=== PATIENT | female | born 1965 | race African-American/Black ===

== ENCOUNTER 2020-06-12 11:09 | Inpatient (IN) | payer OTHER ==
[2020-06-12 11:17] VITALS: BMI 26.9
--- NOTE | 2020-06-12 11:48 | PDOC ---
History of Present Illness - General Chief Complaint: Rectal Bleed Stated Complaint: Blood Transfusion Time Seen by Provider: 06/12/20 11:24 - History of Present Illness Initial Comments: Day Houston is a 54 y/o female with PMH significant for HTN and hemorrhoids, presenting today with rectal bleeding associated with bowel movements, anemia, and for blood transfusion. Reports that she has a hx of hemorrhoids but over the past 3 weeks has "bleeding like a faucet" when she has bowel movements. Pain on BM. Reports that her HGB was 14 last week and 7 yesterday. Sent in by Dr. Valle for blood transfusion, admission, and scope. No chest pain/shortness of breath. No dizziness or syncope. No abd pain. No nausea/vomiting. Reports mild constipation. No back pain. No lower extremity swelling or pain. No rectal bleeding when not having a bowel movement. Past History - Medical History Allergies/Adverse Reactions: Allergies Allergy/AdvReac Type Severity Reaction Status Date / Time No Known Allergies Allergy Unverified 06/12/20 11:18 Home Medications: Ambulatory Orders Amlodipine/Atorvastatin [Amlodipine-Atorvast 10-20 mg] 1 each PO DAILY 06/12/20 Ferrous Sulfate [Iron] 325 mg PO DAILY 06/12/20 Linaclotide [Linzess] 145 mcg PO DAILY 06/12/20 Metoprolol Succinate 50 mg PO DAILY 06/12/20 Anemia: Yes COPD: No HTN: Yes - Psycho-Social/Smoking History Smoking History: Never smoked Have you smoked in the past 12 months: No Information on smoking cessation initiated: No - Substance Abuse Hx (Audit-C & DAST Scrn) How often the patient has a drink containing alcohol: 2-4 times / month Number of drinks the patient has on a typical day: 1 or 2 How often the patient has six or more drinks on one occasion: Never Score: In Men: 4 or > Positive; In Women: 3 or > Positive: 2 Screen Result (Pos requires Nsg. Audit-10AR): Negative In the last yr the pt used illegal drug/Rx for NonMed reason: No Score: Yes response is considered Positive: 0 Screen Result (Positive result requires Nsg. DAST-10): Negative Review of Systems - Review of Systems Comments:: GENERAL/CONSTITUTIONAL: No fever or chills. No weakness._ HEAD, EYES, EARS, NOSE AND THROAT: No change in vision. No change in hearing. No sore throat._ CARDIOVASCULAR: No chest pain or shortness of breath_ RESPIRATORY: Denies cough, hemoptysis_ GASTROINTESTINAL: No nausea, vomiting, diarrhea. Reports constipation and rectal bleeding with bowel movement. Reports pain with bowel movement. GENITOURINARY: No dysuria, frequency, or change in urination._ MUSCULOSKELETAL: No joint or muscle swelling or pain. No neck or back pain._ SKIN: No rash_ NEUROLOGIC: No headache, vertigo, loss of consciousness, or change in strength/sensation._ ENDOCRINE: No increased thirst. No abnormal weight change_ HEMATOLOGIC/LYMPHATIC: No anemia, easy bleeding, or history of blood clots._ ALLERGIC/IMMUNOLOGIC: No hives or skin allergy._ *Physical Exam - Vital Signs Last Vital Signs Temp Pulse Resp BP Pulse Ox 99.0 F 104 H 16 129/90 100 06/12/20 11:15 06/12/20 11:15 06/12/20 11:15 06/12/20 11:15 06/12/20 11:15 - Physical Exam GENERAL: Awake, alert, and oriented to person/place/time, in no acute distress_ HEAD: No signs of trauma, normocephalic, atraumatic _ EYES: PERRLA, EOMI, sclera anicteric, conjunctiva clear_ ENT: Hearing grossly normal, nares patent, oropharynx clear without exudates. No uvular deviation. Moist mucosa_ NECK: Normal ROM, supple, no lymphadenopathy, JVD, or masses_ LUNGS: No distress, speaks in full sentences, clear to auscultation bilaterally _ HEART: Regular rate and rhythm, normal S1 and S2, no murmurs appreciated, peripheral pulses normal and equal bilaterally._ ABDOMEN: Soft, nontender, normoactive bowel sounds. No guarding, no rebound. No masses_ EXTREMITIES: Normal inspection, Normal range of motion, no edema. No clubbing or cyanosis_ NEUROLOGICAL: Cranial nerves II through XII grossly intact. Normal speech, normal gait, no focal sensorimotor deficits _ SKIN: Warm, Dry, normal turgor, no rashes or lesions noted_ RECTAL: No active bleeding. Small skin colored hemorrhoid left lateral. No masses. Normal rectal tone. Normal external inspection. ED Treatment Course - LABORATORY CBC & Chemistry Diagram: 06/12/20 11:50 06/12/20 11:50 - RADIOLOGY Radiology Studies Ordered: Category Date Time Status CHEST X-RAY PORTABLE* [RAD] Stat Radiology 06/12/20 11:33 Ordered Medical Decision Making - Medical Decision Making 06/12/20 11:47 54F hx of HTN and hemorrhoids sent in by Dr. Valle today for rectal bleeding and hemorrhoids. Hgb 7 yesterday. Plan to transfuse and admit for scope. -labs -ekg -cxr -type and screen -coags 06/12/20 12:35 EKG shows 83 bpm, NSR, no ST elevation, QTc 420, nml axis. 06/12/20 12:38 CXR negative for acute intrathoracic pathology. 06/12/20 12:46 Labs reviewed. Hgb 6.7. -1 unit pRBC Laboratory Last Values WBC 6.1 K/mm3 (4.0-10.0) 06/12/20 11:50 RBC 2.36 M/mm3 (3.60-5.2) L 06/12/20 11:50 Hgb 6.7 GM/dL (10.7-15.3) L* 06/12/20 11:50 Hct 21.0 % (32.4-45.2) L 06/12/20 11:50 MCV 88.9 fl (80-96) 06/12/20 11:50 MCH 28.3 pg (25.7-33.7) 06/12/20 11:50 MCHC 31.8 g/dl (32.0-36.0) L 06/12/20 11:50 RDW 18.7 % (11.6-15.6) H 06/12/20 11:50 Plt Count 275 K/MM3 (134-434) 06/12/20 11:50 MPV 8.2 fl (7.5-11.1) 06/12/20 11:50 Absolute Neuts (auto) 4.1 K/mm3 (1.5-8.0) 06/12/20 11:50 Neutrophils % 67.5 % (42.8-82.8) 06/12/20 11:50 Lymphocytes % 22.5 % (8-40) 06/12/20 11:50 Monocytes % 8.0 % (3.8-10.2) 06/12/20 11:50 Eosinophils % 1.5 % (0-4.5) 06/12/20 11:50 Basophils % 0.5 % (0-2.0) 06/12/20 11:50 Nucleated RBC % 0 % (0-0) 06/12/20 11:50 PT with INR 10.80 SEC (9.7-13.0) 06/12/20 11:50 INR 0.92 (0.83-1.09) 06/12/20 11:50 PTT (Actin FS) 26.8 SECONDS (25.2-36.5) 06/12/20 11:50 Sodium 141 mmol/L (136-145) 06/12/20 11:50 Potassium 4.2 mmol/L (3.5-5.1) 06/12/20 11:50 Chloride 108 mmol/L (98-107) H 06/12/20 11:50 Carbon Dioxide 27 mmol/L (21-32) 06/12/20 11:50 Anion Gap 6 MMOL/L (8-16) L 06/12/20 11:50 BUN 7.5 mg/dL (7-18) 06/12/20 11:50 Creatinine 0.6 mg/dL (0.55-1.3) 06/12/20 11:50 Est GFR (CKD-EPI)AfAm 120.61 06/12/20 11:50 Est GFR (CKD-EPI)NonAf 104.06 06/12/20 11:50 Random Glucose 105 mg/dL (74-106) 06/12/20 11:50 Calcium 9.1 mg/dL (8.5-10.1) 06/12/20 11:50 Total Bilirubin 0.2 mg/dL (0.2-1) 06/12/20 11:50 AST 29 U/L (15-37) 06/12/20 11:50 ALT 41 U/L (13-61) 06/12/20 11:50 Alkaline Phosphatase 54 U/L (45-117) 06/12/20 11:50 Total Protein 6.7 g/dl (6.4-8.2) 06/12/20 11:50 Albumin 3.5 g/dl (3.4-5.0) 06/12/20 11:50 Stool Occult Blood Trace (NEGATIVE) 06/12/20 11:50 Crossmatch See Detail 06/12/20 11:50 06/12/20 13:07 D/w Dr. Gordon who accepts the patient for admission. 06/12/20 13:55 D/w Dr. Valle who requests clear liquid diet, CTA if profuse bleeding without bowel movement, 2 u pRBC. Discharge - Discharge Information Problems reviewed: Yes Clinical Impression/Diagnosis: LGI bleed, Lightheadedness Anemia Qualifiers: Anemia type: other cause Other causes of anemia: other cause, not classified Qualified Code(s): D64.89 - Other specified anemias Condition: Guarded - Admission Yes - Follow up/Referral - Patient Discharge Instructions - Post Discharge Activity
[2020-06-12 12:16] LABS: BASO % 0.5 % (0-2.0); EOS % 1.5 % (0-4.5); LYMPH % 22.5 % (8-40); MCH 28.3 pg (25.7-33.7); MCHC 31.8 g/dl (32.0-36.0); MEAN CELL VOLUME 88.9 fl (80-96); MEAN PLT VOLUME 8.2 fl (7.5-11.1); NEUT % 67.5 % (42.8-82.8); PLATELET COUNT 275 K/MM3 (134-434); RBC 2.36 M/mm3 (3.60-5.2); RDW 18.7 % (11.6-15.6); WHITE BLOOD COUNT 6.1 K/mm3 (4.0-10.0)
[2020-06-12 12:19] LABS: HEMOGLOBIN 6.7 GM/dL (10.7-15.3)
[2020-06-12 12:21] LABS: INR 0.92 (0.83-1.09); PROTHROMBIN TIME (PATIENT) 10.8 SEC (9.7-13.0)
[2020-06-12 12:24] LABS: ACTIVATED PTT 26.8 SECONDS (25.2-36.5)
[2020-06-12 12:45] LABS: ALBUMIN 3.5 g/dl (3.4-5.0); BILIRUBIN,TOTAL 0.2 mg/dL (0.2-1); BLOOD UREA NITROGEN 7.5 mg/dL (7-18); CALCIUM 9.1 mg/dL (8.5-10.1); CREATININE 0.6 mg/dL (0.55-1.3); POTASSIUM 4.2 mmol/L (3.5-5.1); TOT PROT 6.7 g/dl (6.4-8.2)
--- NOTE | 2020-06-12 12:48 | PDOC ---
Documentation entered by Modesto Asher SCRIBE, acting as scribe for Mireya Fulton MD. Mireya Fulton MD: This documentation has been prepared by the Lb loving Nirvannie, SCRIBE, under my direction and personally reviewed by me in its entirety. I confirm that the documentation accurately reflects all work, treatment, procedures, and medical decision making performed by me. Attending Attestation - Resident Resident Name: Jose D Alberto - ED Attending Attestation I have performed the following: I have examined & evaluated the patient, The case was reviewed & discussed with the resident, I agree w/resident's findings & plan, Exceptions are as noted - HPI HPI: 06/12/20 11:46 54YOF with h/o hemorrhoids (for many years with minimal bleeding whenever she wipes at baseline), one prior admission for rectal bleeding (resulting in blood transfusion and colonoscopy, in 2012), chronic LLQ pain, and HTN, who p/w rectal bleeding whenever she has a bowel movement worsening over the past 2-3 weeks, now coming out "like a faucet." She notes also feeling lightheaded and pre- syncopal but has not lost consciousness. She notes having needed a transfusion in the past. She was sent by Dr. Valle for admission to Dr. Poon's group and likely transfusion because her outpatient hemoglobin was ~7. She additionally notes that her baseline chronic LLQ pain has been slightly worse over the past few weeks. - Physicial Exam PE: 06/12/20 12:38 GENERAL: nontoxic-appearing, pleasant, A/Ox4, no distress, answers questions appropriately, accompanied by family member at bedside HEENT: pale conjunctiva, PERRLA, EOMI, moist mucous membranes NECK/BACK: no midline ttp, no spinal stepoff or deformity, no hematoma, full ROM, neck supple CARDIOVASCULAR: regular rate/rhythm, no MGR, strong peripheral pulses, capillary refill <2 seconds, extremities wwp, no edema LUNGS/RESPIRATORY: no respiratory distress, CTAB GI/ABDOMEN: symmetric [id number], normoactive BS, soft, no ttp, no midline pulsatile masses, ALINE as described in resident note as performed by resident : no CVA tenderness MSK/EXTREMITIES: no muscle atrophy, no acute deformity SKIN: warm and dry, no pallor, no jaundice, no rash, no pathologic-appearing bruising, no skin breakdown, no cuts, no lesions NEUROLOGICAL: GCS 15, CN II-XII grossly intact, 5/5 strength proximally and distally, no facial droop - Medical Decision Making 06/12/20 12:42 54YOF sent in by Dr. Valle for LGIB and Hgb ~7, patient states lightheaded but otherwise eels well. Initial Vital Signs Temp Pulse Resp BP Pulse Ox 99.0 F 104 H 16 129/90 100 06/12/20 11:15 06/12/20 11:15 06/12/20 11:15 06/12/20 11:15 06/12/20 11:15 Most likely bleeding hemorrhoids per her prior colonoscopy-confirmed diagnosis per the patient's report. Other possibilities include but not limited to diverticulosis or diverticulitis (especially given increase in baseline chronic LLQ discomfort), AV malformation, IBD, UC, malignancy, other anorectal disease, etc. W/U ordered: labs as below, pre-op w/u, EKG. Will control her symptoms here in the ED, keep NPO except ice chips for now, and plan for pRBC transfusion and admission. EKG: Sinus rhythm, rate 83, normal axis and intervals, TWF in III and aVL, no other ST-T changes. Laboratory Tests 06/12/20 06/12/20 06/12/20 11:50 11:50 11:50 WBC 6.1 RBC 2.36 L Hgb 6.7 L* Hct 21.0 L MCV 88.9 MCH 28.3 MCHC 31.8 L RDW 18.7 H Plt Count 275 MPV 8.2 Absolute Neuts (auto) 4.1 Neutrophils % 67.5 Lymphocytes % 22.5 Monocytes % 8.0 Eosinophils % 1.5 Basophils % 0.5 Nucleated RBC % 0 PT with INR 10.80 INR 0.92 PTT (Actin FS) 26.8 Sodium Potassium Chloride Carbon Dioxide Anion Gap BUN Creatinine Est GFR (CKD-EPI)AfAm Est GFR (CKD-EPI)NonAf Random Glucose Calcium Total Bilirubin AST ALT Alkaline Phosphatase Total Protein Albumin Stool Occult Blood Trace Crossmatch 06/12/20 06/12/20 11:50 11:50 WBC RBC Hgb Hct MCV MCH MCHC RDW Plt Count MPV Absolute Neuts (auto) Neutrophils % Lymphocytes % Monocytes % Eosinophils % Basophils % Nucleated RBC % PT with INR INR PTT (Actin FS) Sodium 141 Potassium 4.2 Chloride 108 H Carbon Dioxide 27 Anion Gap 6 L BUN 7.5 Creatinine 0.6 Est GFR (CKD-EPI)AfAm 120.61 Est GFR (CKD-EPI)NonAf 104.06 Random Glucose 105 Calcium 9.1 Total Bilirubin 0.2 AST 29 ALT 41 Alkaline Phosphatase 54 Total Protein 6.7 Albumin 3.5 Stool Occult Blood Crossmatch See Detail Patient requires admission for further workup and observation and for blood transfusion. Admission procedures completed by Dr. Alberto. Discharge - Discharge Information Problems reviewed: Yes Clinical Impression/Diagnosis: LGI bleed, Lightheadedness Anemia Qualifiers: Anemia type: other cause Other causes of anemia: other cause, not classified Qualified Code(s): D64.89 - Other specified anemias Condition: Guarded - Admission Yes - Follow up/Referral Referrals: Reji Finney MD [Primary Care Provider] - - Patient Discharge Instructions - Post Discharge Activity
--- NOTE | 2020-06-12 14:03 | CON.GI ---
Consult Consult Specialty:: GI Reason for Consultation:: rectal bleeding - History of Present Illness History of Present Illness: 54 y/o F was referred because of rectal bleeding for the past 4 weeks. Recently this has worsened the past 2 weeks. She complains of dizziness but denies chest pain, syncope and dyspnea. Her hgb was 6 in the ER. Covid sent. No active bleeding at this time. She only bleeds after a bowel movement. - Smoking History Smoking history: Never smoked Have you smoked in the past 12 months: No Home Medications - Allergies Allergies/Adverse Reactions: Allergies Allergy/AdvReac Type Severity Reaction Status Date / Time No Known Allergies Allergy Unverified 06/12/20 11:18 - Home Medications Home Medications: Ambulatory Orders Amlodipine/Atorvastatin [Amlodipine-Atorvast 10-20 mg] 1 each PO DAILY 06/12/20 Ferrous Sulfate [Iron] 325 mg PO DAILY 06/12/20 Linaclotide [Linzess] 145 mcg PO DAILY 06/12/20 Metoprolol Succinate 50 mg PO DAILY 06/12/20 Physical Exam-GI Vital Signs: Vital Signs Temperature 99.0 F 06/12/20 11:15 Pulse Rate 104 H 06/12/20 11:15 Respiratory Rate 16 06/12/20 11:15 Blood Pressure 129/90 06/12/20 11:15 O2 Sat by Pulse Oximetry (%) 100 06/12/20 11:15 Constitutional: Yes: Well Nourished Eyes: Yes: Conjunctiva Clear HENT: Yes: Atraumatic Neck: Yes: Supple Cardiovascular: Yes: Regular Rate and Rhythm Respiratory: Yes: CTA Bilaterally ...Palpate: Yes: Soft. No: Firm/Rigid, Guarding, Hepatomegaly, Mass, Pulsatile Mass, Splenomegaly, Tenderness Labs: CBC, BMP 06/12/20 11:50 06/12/20 11:50 INR, PTT INR 0.92 (0.83-1.09) 06/12/20 11:50 CBCD WBC 6.1 K/mm3 (4.0-10.0) 06/12/20 11:50 RBC 2.36 M/mm3 (3.60-5.2) L 06/12/20 11:50 Hgb 6.7 GM/dL (10.7-15.3) L* 06/12/20 11:50 Hct 21.0 % (32.4-45.2) L 06/12/20 11:50 MCV 88.9 fl (80-96) 06/12/20 11:50 MCHC 31.8 g/dl (32.0-36.0) L 06/12/20 11:50 RDW 18.7 % (11.6-15.6) H 06/12/20 11:50 Plt Count 275 K/MM3 (134-434) 06/12/20 11:50 MPV 8.2 fl (7.5-11.1) 06/12/20 11:50 CMP Sodium 141 mmol/L (136-145) 06/12/20 11:50 Potassium 4.2 mmol/L (3.5-5.1) 06/12/20 11:50 Chloride 108 mmol/L (98-107) H 06/12/20 11:50 Carbon Dioxide 27 mmol/L (21-32) 06/12/20 11:50 Anion Gap 6 MMOL/L (8-16) L 06/12/20 11:50 BUN 7.5 mg/dL (7-18) 06/12/20 11:50 Creatinine 0.6 mg/dL (0.55-1.3) 06/12/20 11:50 Calcium 9.1 mg/dL (8.5-10.1) 06/12/20 11:50 Total Bilirubin 0.2 mg/dL (0.2-1) 06/12/20 11:50 AST 29 U/L (15-37) 06/12/20 11:50 ALT 41 U/L (13-61) 06/12/20 11:50 Alkaline Phosphatase 54 U/L (45-117) 06/12/20 11:50 Total Protein 6.7 g/dl (6.4-8.2) 06/12/20 11:50 Albumin 3.5 g/dl (3.4-5.0) 06/12/20 11:50 Problem List - Problems (1) Rectal bleeding Assessment/Plan: R>transfuse to HGB for colonoscopy , COVID --pending Dr Shaw is covering this weekend Code(s): K62.5 - HEMORRHAGE OF ANUS AND RECTUM
[2020-06-12] MEDS ORDERED: PANTOPRAZOLE SODIUM 40 MG VIAL ONE (15:54)
[2020-06-12] MEDS: PANTOPRAZOLE SODIUM 80 MG in SODIUM CHLORIDE 100 ML IVPB SCH (16:04)
[2020-06-12] MEDS: D5-1/2NS+20 MEQ KCL - 20 MEQ/1,000 ML INFUS.BAG IV SCH (16:04)
[2020-06-13] MEDS: PANTOPRAZOLE SODIUM 80 MG in SODIUM CHLORIDE 100 ML IVPB SCH ×3 (01:41→21:04)
[2020-06-13 07:59] LABS: BASO % 0.5 % (0-2.0); EOS % 2.7 % (0-4.5); HEMATOCRIT 24.8 % (32.4-45.2); HEMOGLOBIN 8.1 GM/dL (10.7-15.3); LYMPH % 29.3 % (8-40); MCH 28.3 pg (25.7-33.7); MCHC 32.9 g/dl (32.0-36.0); MEAN CELL VOLUME 86.1 fl (80-96); MEAN PLT VOLUME 8.4 fl (7.5-11.1); MONO % 8.5 % (3.8-10.2); PLATELET COUNT 233 K/MM3 (134-434); RBC 2.88 M/mm3 (3.60-5.2); RDW 17.1 % (11.6-15.6); WHITE BLOOD COUNT 5.3 K/mm3 (4.0-10.0)
[2020-06-13 08:03] LABS: INR 0.96 (0.83-1.09); PROTHROMBIN TIME (PATIENT) 11.3 SEC (9.7-13.0)
[2020-06-13 08:06] LABS: ACTIVATED PTT 26.3 SECONDS (25.2-36.5)
[2020-06-13 08:20] LABS: BILIRUBIN,TOTAL 0.7 mg/dL (0.2-1); BLOOD UREA NITROGEN 3.3 mg/dL (7-18); CALCIUM 8.9 mg/dL (8.5-10.1); CREATININE 0.7 mg/dL (0.55-1.3); POTASSIUM 3.7 mmol/L (3.5-5.1); TOT PROT 5.7 g/dl (6.4-8.2)
[2020-06-13] MEDS: ATORVASTATIN CA 20 MG TABLET (FP) PO SCH (09:32)
[2020-06-13] MEDS: amLODIPine BESYLATE 10 MG TABLET (FP) PO SCH (09:32)
--- NOTE | 2020-06-13 09:50 | HP ---
Admitting History and Physical - Past Medical History Cardiovascular: Yes: HTN, Hyperlipdemia Gastrointestinal: Yes: Constipation, GI Bleed - Smoking History Smoking history: Never smoked Have you smoked in the past 12 months: No Home Medications - Allergies Allergies/Adverse Reactions: Allergies Allergy/AdvReac Type Severity Reaction Status Date / Time No Known Allergies Allergy Unverified 06/12/20 11:18 - Home Medications Home Medications: Ambulatory Orders Amlodipine/Atorvastatin [Amlodipine-Atorvast 10-20 mg] 1 each PO DAILY 06/12/20 Ferrous Sulfate [Iron] 325 mg PO DAILY 06/12/20 Linaclotide [Linzess] 145 mcg PO DAILY 06/12/20 Metoprolol Succinate 50 mg PO DAILY 06/12/20 Review of Systems - Review of Systems Cardiovascular: denies: Chest Pain, Palpitations, Shortness of Breath Respiratory: denies: Hemoptysis, Orthopnea Gastrointestinal: reports: Constipation, Rectal Bleeding. denies: Abdominal Pain, Bloating Genitourinary: reports: No Symptoms Neurological: reports: No Symptoms Physical Examination Vital Signs: Vital Signs Temperature 98.3 F 06/13/20 08:52 Pulse Rate 83 06/13/20 08:52 Respiratory Rate 18 06/13/20 08:57 Blood Pressure 124/73 06/13/20 08:52 O2 Sat by Pulse Oximetry (%) 100 06/13/20 08:57 Cardiovascular: Yes: Regular Rate and Rhythm Respiratory: Yes: Regular, CTA Bilaterally Gastrointestinal: Yes: Normal Bowel Sounds, Soft. No: Tenderness Labs: CBC, BMP 06/13/20 06:20 06/13/20 06:20 Problem List - Problems (1) Anemia Assessment/Plan: TRANSFUSE PRBC FOLLOW LABS GI CONSULT NOTED Code(s): D64.9 - ANEMIA, UNSPECIFIED Qualifiers: Anemia type: other cause Other causes of anemia: other cause, not classified Qualified Code(s): D64.89 - Other specified anemias (2) Rectal bleeding Assessment/Plan: ABOVE Code(s): K62.5 - HEMORRHAGE OF ANUS AND RECTUM
[2020-06-13] MEDS ORDERED: PATIENT'S OWN MEDICATION (NON-FORMULARY) (Amlodipine/Atorvastatin [Amlodipine-Atorvast 10- PO SCH (10:00)
--- NOTE | 2020-06-13 14:27 | PN.GI ---
GI Progress Note Subjective: still with rectal bleeding - no abd pain / nausea / vomiting / hemetemesis - Objective Vital Signs: Vital Signs Temperature 98.3 F 06/13/20 08:52 Pulse Rate 83 06/13/20 08:52 Respiratory Rate 18 06/13/20 08:57 Blood Pressure 124/73 06/13/20 08:52 O2 Sat by Pulse Oximetry (%) 100 06/13/20 08:57 Constitutional: Well Nourished, No Distress, Calm Respiratory: Yes: WNL, Regular, CTA Bilaterally Gastrointestinal Inspection: Yes: WNL ...Auscultate: Yes: Normoactive Bowel Sounds Musculoskeletal: Yes: WNL Extremities: Yes: WNL Edema: No Labs: CBC, BMP 06/13/20 06:20 06/13/20 06:20 INR, PTT INR 0.96 (0.83-1.09) 06/13/20 06:20 Problem List - Problems (1) Anemia Assessment/Plan: serial h/h q12 transfuse to keep HG greater than or equal to 10 avoid nsaid npo / ivf's if no further bleeding and h/h stable may advance to clear liquid diet plan for diagnostic colonoscopy on monday colorectal surgery evaluation if bleeding recurs rec - cta or bleeding scan Code(s): D64.9 - ANEMIA, UNSPECIFIED Qualifiers: Anemia type: other cause Other causes of anemia: other cause, not cla ssified Qualified Code(s): D64.89 - Other specified anemias (2) LGI bleed Code(s): K92.2 - GASTROINTESTINAL HEMORRHAGE, UNSPECIFIED (3) Rectal bleeding Code(s): K62.5 - HEMORRHAGE OF ANUS AND RECTUM
--- NOTE | 2020-06-13 15:06 | EKG ---
Test Reason : Blood Pressure : / mmHG Vent. Rate : 083 BPM Atrial Rate : 083 BPM P-R Int : 166 ms QRS Dur : 072 ms QT Int : 358 ms P-R-T Axes : 074 062 041 degrees QTc Int : 420 ms NORMAL SINUS RHYTHM NONSPECIFIC T WAVE ABNORMALITY ABNORMAL ECG NO PREVIOUS ECGS AVAILABLE Confirmed by JUANY RASCON MD ([id number]) on 06/13/2020 3:06:15 PM Referred By: Confirmed By:JUANY RASCON MD
[2020-06-13] MEDS: D5-1/2NS+20 MEQ KCL - 20 MEQ/1,000 ML INFUS.BAG IV SCH (21:04)
--- NOTE | 2020-06-14 07:37 | PN.GI ---
GI Progress Note Subjective: feeling better today - Objective Vital Signs: Vital Signs Temperature 97.9 F 06/14/20 06:00 Pulse Rate 73 06/14/20 06:00 Respiratory Rate 18 06/14/20 06:00 Blood Pressure 129/80 06/14/20 06:00 O2 Sat by Pulse Oximetry (%) 100 06/14/20 06:00 Constitutional: Well Nourished, No Distress Eyes: Yes: WNL Respiratory: Yes: WNL, Regular, CTA Bilaterally Gastrointestinal Inspection: Yes: WNL ...Auscultate: Yes: Normoactive Bowel Sounds Extremities: Yes: WNL Edema: No Labs: CBC, BMP 06/13/20 06:20 06/13/20 06:20 INR, PTT INR 0.96 (0.83-1.09) 06/13/20 06:20 Problem List - Problems (1) Anemia Assessment/Plan: serial h/h q12 transfuse to keep HG greater than or equal to 10 avoid nsaid clear liquid diet / bowel prep for diagnostic colonoscopy on Monday with Dr. Valle Code(s): D64.9 - ANEMIA, UNSPECIFIED Qualifiers: Anemia type: other cause Other causes of anemia: other cause, not classified Qualified Code(s): D64.89 - Other specified anemias (2) LGI bleed Code(s): K92.2 - GASTROINTESTINAL HEMORRHAGE, UNSPECIFIED (3) Rectal bleeding Code(s): K62.5 - HEMORRHAGE OF ANUS AND RECTUM
[2020-06-14] MEDS: PANTOPRAZOLE SODIUM 80 MG in SODIUM CHLORIDE 100 ML IVPB SCH ×2 (07:54→16:50)
[2020-06-14 08:43] LABS: BASO % 0.6 % (0-2.0); EOS % 3.6 % (0-4.5); HEMATOCRIT 30.2 % (32.4-45.2); LYMPH % 16.9 % (8-40); MCH 28.5 pg (25.7-33.7); MCHC 33.2 g/dl (32.0-36.0); MEAN CELL VOLUME 85.9 fl (80-96); MEAN PLT VOLUME 8.3 fl (7.5-11.1); MONO % 7.6 % (3.8-10.2); NEUT % 71.3 % (42.8-82.8); PLATELET COUNT 257 K/MM3 (134-434); RBC 3.52 M/mm3 (3.60-5.2); RDW 16.6 % (11.6-15.6)
[2020-06-14] MEDS: amLODIPine BESYLATE 10 MG TABLET (FP) PO SCH (09:44)
[2020-06-14] MEDS: ATORVASTATIN CA 20 MG TABLET (FP) PO SCH (09:45)
--- NOTE | 2020-06-14 13:52 | PN ---
Progress Note, Physician - Current Medication List Current Medications: Active Medications Amlodipine Besylate (Norvasc -) 10 mg PO DAILY [facility] Last Admin: 06/14/20 09:44 Dose: 10 mg Documented by: Atorvastatin Calcium (Lipitor -) 20 mg PO DAILY [facility] Last Admin: 06/14/20 09:45 Dose: Not Given Documented by: Potassium Chloride/Dextrose/Sod Cl (D5-1/2ns+20 Meq Kcl -) 20 meq in 1,000 mls @ 75 mls/hr IV ASDIR [facility] Last Admin: 06/13/20 21:04 Dose: 75 mls/hr Documented by: Pantoprazole Sodium 80 mg/ (Sodium Chloride) 100 mls @ 10 mls/hr IVPB Q10H [facility] Stop: 06/15/20 15:25 Last Admin: 06/14/20 07:54 Dose: 10 mls/hr Documented by: Metoprolol Succinate (Toprol Xl -) 50 mg PO DAILY [facility] Last Admin: 06/14/20 09:45 Dose: 50 mg Documented by: - Objective Vital Signs: Vital Signs Temperature 98.2 F 06/14/20 09:47 Pulse Rate 80 06/14/20 09:47 Respiratory Rate 20 06/14/20 09:47 Blood Pressure 129/82 06/14/20 09:47 O2 Sat by Pulse Oximetry (%) 97 06/14/20 09:47 Cardiovascular: Yes: Regular Rate and Rhythm Respiratory: Yes: Regular, CTA Bilaterally Gastrointestinal: Yes: Normal Bowel Sounds, Soft. No: Tenderness Labs: CBC, BMP 06/14/20 07:22 06/13/20 06:20 INR, PTT INR 0.96 (0.83-1.09) 06/13/20 06:20 Problem List - Problems (1) Anemia Assessment/Plan: TRANSFUSE PRBC FOLLOW LABS GI CONSULT NOTED Code(s): D64.9 - ANEMIA, UNSPECIFIED Qualifiers: Anemia type: other cause Other causes of anemia: other cause, not classified Qualified Code(s): D64.89 - Other specified anemias (2) Rectal bleeding Assessment/Plan: ABOVE Code(s): K62.5 - HEMORRHAGE OF ANUS AND RECTUM
[2020-06-14] MEDS: ACETAMINOPHEN 500 MG TABLET (FP) PO PRN (16:50)
[2020-06-14] MEDS: D5-1/2NS+20 MEQ KCL - 20 MEQ/1,000 ML INFUS.BAG IV SCH (16:50)
[2020-06-15] MEDS: PANTOPRAZOLE SODIUM 80 MG in SODIUM CHLORIDE 100 ML IVPB SCH ×2 (04:07→17:51)
[2020-06-15] MEDS ORDERED: KETOROLAC TROMETHAMINE 60 MG/2 ML VIAL IM ONE (07:57)
[2020-06-15] MEDS ORDERED: HYDROmorphone HCl 2 MG/ML VIAL ONE (08:24)
[2020-06-15] MEDS: HYDROmorphone HCl 2 MG/ML VIAL IVPB PRN ×2 (08:40→16:44)
--- NOTE | 2020-06-15 09:42 | CONSULT ---
Consult Consult Specialty:: Surgery Reason for Consultation:: Stage 4 hemorrhoids - History of Present Illness Chief Complaint: rectal bleeding History of Present Illness: 54YOF with h/o hemorrhoids (for many years with minimal bleeding whenever she wipes at baseline), one prior admission for rectal bleeding (resulting in blood transfusion and colonoscopy, in 2012), chronic LLQ pain, and HTN, who p/w rectal bleeding whenever she has a bowel movement worsening over the past 2-3 weeks, now coming out "like a faucet." She notes also feeling lightheaded and pre- syncopal but has not lost consciousness. She notes having needed a transfusion in the past. Patient was admitted for HGB of 6.7 requiring BT. Underwent colonoscopy and rubber band ligation today but noted to have prolapsed hemorrhoids with active bleeding. - History Source History Provided By: Patient - Past Medical History Cardio/Vascular: Yes: HTN, Hyperlipdemia Gastrointestinal: Yes: Constipation, GI Bleed - Smoking History Smoking history: Never smoked Have you smoked in the past 12 months: No Home Medications - Allergies Allergies/Adverse Reactions: Allergies Allergy/AdvReac Type Severity Reaction Status Date / Time No Known Allergies Allergy Unverified 06/12/20 11:18 - Home Medications Home Medications: Ambulatory Orders Amlodipine/Atorvastatin [Amlodipine-Atorvast 10-20 mg] 1 each PO DAILY 06/12/20 Ferrous Sulfate [Iron] 325 mg PO DAILY 06/12/20 Linaclotide [Linzess] 145 mcg PO DAILY 06/12/20 Metoprolol Succinate 50 mg PO DAILY 06/12/20 Review of Systems - Review of Systems Constitutional: reports: Weakness Eyes: reports: No Symptoms HENT: reports: No Symptoms Neck: reports: No Symptoms Respiratory: reports: No Symptoms Gastrointestinal: reports: Rectal Bleeding, Other (anal pain) Genitourinary: reports: No Symptoms Neurological: reports: No Symptoms Physical Exam Vital Signs: Vital Signs Temperature 97.3 F L 06/15/20 08:09 Pulse Rate 67 06/15/20 09:28 Respiratory Rate 16 06/15/20 09:28 Blood Pressure 121/70 06/15/20 09:28 O2 Sat by Pulse Oximetry (%) 100 06/15/20 09:28 Constitutional: Yes: Well Nourished Eyes: Yes: Conjunctiva Clear HENT: Yes: Normocephalic Neck: Yes: Supple Cardiovascular: Yes: Regular Rate and Rhythm Respiratory: Yes: CTA Bilaterally Gastrointestinal: Yes: Normal Bowel Sounds, Soft ...Rectal Exam: Yes: Other (prolapsed internal and external hemorrhoids at LL column 3 x 2 cm with stigmata of recent hemorrhage, 1 cm external hemorrhoid at RA column) Renal/: Yes: WNL Labs: CBC, BMP 06/14/20 07:22 06/13/20 06:20 Problem List - Problems (1) Stage IV hemorrhoids Assessment/Plan: Exam under anesthesia, hemorrhoidectomy, possible stapled hemorrhoidectomy in am. Code(s): K64.3 - FOURTH DEGREE HEMORRHOIDS
[2020-06-15] MEDS: ACETAMINOPHEN 500 MG TABLET (FP) PO PRN (11:22)
[2020-06-15] MEDS: amLODIPine BESYLATE 10 MG TABLET (FP) PO SCH (11:28)
[2020-06-15] MEDS: ATORVASTATIN CA 20 MG TABLET (FP) PO SCH (11:28)
--- NOTE | 2020-06-15 11:28 | PN ---
Progress Note, Physician Chief Complaint: Anemia Bleeding hemorrhoids History of Present Illness: NAD lethargic S/P colonoscopy c/o suprapubic pain - Current Medication List Current Medications: Active Medications Acetaminophen (Tylenol -) 1,000 mg PO Q8H PRN PRN Reason: HEADACHE Last Admin: 06/14/20 16:50 Dose: 1,000 mg Documented by: Amlodipine Besylate (Norvasc -) 10 mg PO DAILY [facility] Last Admin: 06/14/20 09:44 Dose: 10 mg Documented by: Atorvastatin Calcium (Lipitor -) 20 mg PO DAILY [facility] Last Admin: 06/14/20 09:45 Dose: Not Given Documented by: Hydromorphone HCl (Dilaudid Vial -) 1 mg IVPB Q4H PRN PRN Reason: PAIN LEVEL 4 - 6 Last Admin: 06/15/20 08:40 Dose: 1 mg Documented by: Potassium Chloride/Dextrose/Sod Cl (D5-1/2ns+20 Meq Kcl -) 20 meq in 1,000 mls @ 75 mls/hr IV ASDIR [facility] Last Admin: 06/14/20 16:50 Dose: Not Given Documented by: Pantoprazole Sodium 80 mg/ (Sodium Chloride) 100 mls @ 10 mls/hr IVPB Q10H [facility] Stop: 06/15/20 15:25 Last Admin: 06/15/20 04:07 Dose: 10 mls/hr Documented by: Metoprolol Succinate (Toprol Xl -) 50 mg PO DAILY [facility] Last Admin: 06/14/20 09:45 Dose: 50 mg Documented by: - Objective Vital Signs: Vital Signs Temperature 97.3 F L 06/15/20 08:09 Pulse Rate 67 06/15/20 09:28 Respiratory Rate 16 06/15/20 09:28 Blood Pressure 121/70 06/15/20 09:28 O2 Sat by Pulse Oximetry (%) 100 06/15/20 09:28 Constitutional: Yes: Well Nourished, No Distress, Calm Cardiovascular: Yes: Regular Rate and Rhythm Respiratory: Yes: Regular, CTA Bilaterally Gastrointestinal: Yes: Normal Bowel Sounds, Soft Genitourinary: Yes: WNL Musculoskeletal: Yes: WNL Extremities: Yes: WNL Edema: No Peripheral Pulses WNL: Yes Neurological: Yes: Alert, Oriented Psychiatric: Yes: Alert, Oriented Labs: CBC, BMP 06/14/20 07:22 06/13/20 06:20 INR, PTT INR 0.96 (0.83-1.09) 06/13/20 06:20 Problem List - Problems (1) Anemia Assessment/Plan: -2/2 to acute hemorrhoidal bleeding -Seen by GI -Seen by Surgery -Possible to OR today for hemorrhoidectomy -Colonoscopy done this AM -Transfuse if hg<7.0 -Monitor hg closely Problems reviewed: Yes Code(s): D64.9 - ANEMIA, UNSPECIFIED Qualifiers: Anemia type: other cause Other causes of anemia: other cause, not classified Qualified Code(s): D64.89 - Other specified anemias (2) Rectal bleeding Assessment/Plan: as above -Avoid Nsaids -Seen by Surgery Problems reviewed: Yes Code(s): K62.5 - HEMORRHAGE OF ANUS AND RECTUM Assessment/Plan See problem list Pt is medically stable for hemorrhoidectomy with acceptable OR risks
[2020-06-15 14:21] LABS: BASO % 0.3 % (0-2.0); EOS % 2.2 % (0-4.5); HEMATOCRIT 29.3 % (32.4-45.2); HEMOGLOBIN 9.5 GM/dL (10.7-15.3); LYMPH % 20.2 % (8-40); MCH 27.8 pg (25.7-33.7); MCHC 32.6 g/dl (32.0-36.0); MEAN CELL VOLUME 85.5 fl (80-96); MEAN PLT VOLUME 8.2 fl (7.5-11.1); MONO % 8.3 % (3.8-10.2); PLATELET COUNT 259 K/MM3 (134-434); RBC 3.43 M/mm3 (3.60-5.2); RDW 16.4 % (11.6-15.6); WHITE BLOOD COUNT 4.9 K/mm3 (4.0-10.0)
[2020-06-15 14:49] LABS: ALBUMIN 3.3 g/dl (3.4-5.0); BILIRUBIN,TOTAL 0.5 mg/dL (0.2-1); BLOOD UREA NITROGEN 4.3 mg/dL (7-18); CREATININE 0.6 mg/dL (0.55-1.3); TOT PROT 6.2 g/dl (6.4-8.2)
[2020-06-15] MEDS: D5-1/2NS+20 MEQ KCL - 20 MEQ/1,000 ML INFUS.BAG IV SCH (16:43)
[2020-06-15] MEDS ORDERED: FERRIC CARBOXYMALTOSE 750 MG in SODIUM CHLORIDE 250 ML IVPB ONE (20:41)
[2020-06-15] MEDS ORDERED: ACETAMINOPHEN 500 MG TABLET (FP) PO PRN (20:42)
[2020-06-16] MEDS ORDERED: BISACODYL 10 MG SUPP.RECT PR ONE (02:43)
[2020-06-16 07:38] LABS: BASO % 0.6 % (0-2.0); EOS % 2.1 % (0-4.5); HEMATOCRIT 33.5 % (32.4-45.2); HEMOGLOBIN 10.8 GM/dL (10.7-15.3); LYMPH % 16.4 % (8-40); MCH 27.7 pg (25.7-33.7); MCHC 32.2 g/dl (32.0-36.0); MEAN CELL VOLUME 86.1 fl (80-96); MEAN PLT VOLUME 8.2 fl (7.5-11.1); MONO % 5.9 % (3.8-10.2); PLATELET COUNT 307 K/MM3 (134-434); RBC 3.89 M/mm3 (3.60-5.2); RDW 16.5 % (11.6-15.6); WHITE BLOOD COUNT 6.4 K/mm3 (4.0-10.0)
[2020-06-16 08:16] LABS: PH,URINE 6.5 (5.0-8.0); URINE APPEARANCE CLEAR; URINE BILIRUBIN NEGATIVE (NEGATIVE); URINE COLOR YELLOW; URINE GLUCOSE (UA) NEGATIVE (NEGATIVE); URINE KETONE NEGATIVE (NEGATIVE); URINE LEUK ESTERASE NEGATIVE (NEGATIVE); URINE NITRITE NEGATIVE (NEGATIVE); URINE PROTEIN NEGATIVE (NEGATIVE)
[2020-06-16 08:18] LABS: ALBUMIN 3.5 g/dl (3.4-5.0); BILIRUBIN,TOTAL 0.7 mg/dL (0.2-1); BLOOD UREA NITROGEN 5.8 mg/dL (7-18); CALCIUM 9.2 mg/dL (8.5-10.1); CREATININE 0.7 mg/dL (0.55-1.3); POTASSIUM 3.9 mmol/L (3.5-5.1); TOT PROT 6.8 g/dl (6.4-8.2)
[2020-06-16] MEDS ORDERED: IRON POLYSACCHARIDES 150 MG CAPSULE PO SCH (10:00)
[2020-06-16] MEDS: amLODIPine BESYLATE 10 MG TABLET (FP) PO SCH (10:00)
[2020-06-16] MEDS: ATORVASTATIN CA 20 MG TABLET (FP) PO SCH (10:01)
--- NOTE | 2020-06-16 10:33 | PN ---
Progress Note, Physician Chief Complaint: Anemia Bleeding hemorrhoids History of Present Illness: NAD alert and awake S/P colonoscopy c/o suprapubic pain Plan for OR today - Current Medication List Current Medications: Active Medications Acetaminophen (Tylenol -) 1,000 mg PO Q6H PRN PRN Reason: PAIN 1-3 Amlodipine Besylate (Norvasc -) 10 mg PO DAILY [facility] Last Admin: 06/16/20 10:00 Dose: 10 mg Documented by: Atorvastatin Calcium (Lipitor -) 20 mg PO DAILY [facility] Last Admin: 06/16/20 10:01 Dose: Not Given Documented by: Hydromorphone HCl (Dilaudid Vial -) 1 mg IVPB Q4H PRN PRN Reason: PAIN LEVEL 4 - 6 Last Admin: 06/15/20 16:44 Dose: 1 mg Documented by: Potassium Chloride/Dextrose/Sod Cl (D5-1/2ns+20 Meq Kcl -) 20 meq in 1,000 mls @ 75 mls/hr IV ASDIR [facility] Last Admin: 06/15/20 16:43 Dose: Not Given Documented by: Metoprolol Succinate (Toprol Xl -) 50 mg PO DAILY [facility] Last Admin: 06/16/20 10:01 Dose: 50 mg Documented by: Polysaccharide Iron Complex (Niferex-150 -) 150 mg PO DAILY [facility] Last Admin: 06/16/20 10:01 Dose: Not Given Documented by: - Objective Vital Signs: Vital Signs Temperature 97.7 F 06/16/20 06:00 Pulse Rate 70 06/16/20 06:00 Respiratory Rate 18 06/16/20 06:00 Blood Pressure 126/84 06/16/20 06:00 O2 Sat by Pulse Oximetry (%) 98 06/16/20 06:00 Constitutional: Yes: Well Nourished, No Distress, Calm Cardiovascular: Yes: Regular Rate and Rhythm Respiratory: Yes: Regular, CTA Bilaterally Gastrointestinal: Yes: Normal Bowel Sounds, Soft, Tenderness (suprapubic) Genitourinary: Yes: WNL Musculoskeletal: Yes: WNL Extremities: Yes: WNL Edema: No Peripheral Pulses WNL: Yes Neurological: Yes: Alert, Oriented Psychiatric: Yes: Alert, Oriented Labs: CBC, BMP 06/16/20 06:25 06/16/20 06:25 INR, PTT INR 0.96 (0.83-1.09) 06/13/20 06:20 Problem List - Problems (1) Anemia Assessment/Plan: -2/2 to acute hemorrhoidal bleeding -Seen by GI -Seen by Surgery -Possible to OR today for hemorrhoidectomy -Colonoscopy done this AM -Transfuse if hg<7.0 -Monitor hg closely -GINA -Injectafer x 1 given last evening -Started on Iron polysaccharide 150 mg po daily Problems reviewed: Yes Code(s): D64.9 - ANEMIA, UNSPECIFIED Qualifiers: Anemia type: other cause Other causes of anemia: other cause, not classified Qualified Code(s): D64.89 - Other specified anemias (2) Rectal bleeding Assessment/Plan: as above -Avoid Nsaids -Seen by Surgery Problems reviewed: Yes Code(s): K62.5 - HEMORRHAGE OF ANUS AND RECTUM (3) Stage IV hemorrhoids Assessment/Plan: -Surgery on board -Going for hemorrhoidectomy today Problems reviewed: Yes Code(s): K64.3 - FOURTH DEGREE HEMORRHOIDS Assessment/Plan See problem list Pt is medically stable for hemorrhoidectomy with acceptable OR risks
[2020-06-16] MEDS ORDERED: LIDOCAINE 1%/EPI 1:100000 (20 ML MULTI DOSE VIAL) ONE (15:11)
[2020-06-16] MEDS ORDERED: MIDAZOLAM HCL 2 MG/2 ML SINGLE DOSE VIAL ONE (15:26)
[2020-06-16] MEDS ORDERED: PROPOFOL 20 ML ONE ×2 (15:26)
[2020-06-16] MEDS ORDERED: ceFAZolin SODIUM 1 GM VIAL IVPB ONE (15:37)
[2020-06-16] MEDS ORDERED: LIDOCAINE 1%/EPI 1:100000 (20 ML MULTI DOSE VIAL) IJ ONE (15:49)
[2020-06-16] MEDS ORDERED: LIDOCAINE HCL 5% TOP OINTMENT 50 GM TUBE TP PRN ×2 (17:06→17:25)
[2020-06-16] MEDS ORDERED: POLYETHYLENE GLYCOL 3350 119 GM BTL PO ONE ×2 (17:09→17:25)
[2020-06-16] MEDS ORDERED: D5-1/2NS+20 MEQ KCL - 20 MEQ/1,000 ML INFUS.BAG IV SCH (17:10)
--- NOTE | 2020-06-16 17:15 | PN ---
Progress Note (short form) - Note Progress Note: no active bleeding, for surgery today Problem List - Problems (1) Rectal bleeding Code(s): K62.5 - HEMORRHAGE OF ANUS AND RECTUM
[2020-06-16] MEDS: HYDROmorphone HCl 2 MG/ML VIAL IVPB PRN ×3 (17:30→23:09)
[2020-06-16] MEDS: D5-1/2NS+20 MEQ KCL - 20 MEQ/1,000 ML INFUS.BAG IV SCH ×2 (18:44→19:44)
[2020-06-16] MEDS ORDERED: ONDANSETRON 4 MG/2 ML VIAL IVPUSH ONE (21:15)
[2020-06-16] MEDS: LACTATED RINGERS SOLUTION 1,000 ML IV SCH (22:58)
[2020-06-17] MEDS: ACETAMINOPHEN 500 MG TABLET (FP) PO PRN ×3 (01:10→19:33)
[2020-06-17] MEDS: HYDROmorphone HCl 2 MG/ML VIAL IVPB PRN ×4 (02:31→22:15)
[2020-06-17] MEDS: D5-1/2NS+20 MEQ KCL - 20 MEQ/1,000 ML INFUS.BAG IV SCH ×2 (02:31→14:00)
[2020-06-17] MEDS ORDERED: SIMETHICONE 80 MG TAB.CHEW (FP) PO ONE (06:43)
[2020-06-17 07:28] LABS: BASO % 0.3 % (0-2.0); EOS % 0.1 % (0-4.5); HEMATOCRIT 31.1 % (32.4-45.2); LYMPH % 9.4 % (8-40); MCH 27.7 pg (25.7-33.7); MCHC 32.1 g/dl (32.0-36.0); MEAN CELL VOLUME 86.2 fl (80-96); MEAN PLT VOLUME 8.2 fl (7.5-11.1); NEUT % 84.2 % (42.8-82.8); PLATELET COUNT 305 K/MM3 (134-434); RDW 16.3 % (11.6-15.6); WHITE BLOOD COUNT 9.8 K/mm3 (4.0-10.0)
[2020-06-17 08:01] LABS: ALBUMIN 3.3 g/dl (3.4-5.0); BILIRUBIN,TOTAL 0.4 mg/dL (0.2-1); BLOOD UREA NITROGEN 6.4 mg/dL (7-18); CALCIUM 9.2 mg/dL (8.5-10.1); CREATININE 0.7 mg/dL (0.55-1.3); POTASSIUM 4.5 mmol/L (3.5-5.1); TOT PROT 6.6 g/dl (6.4-8.2)
--- NOTE | 2020-06-17 10:06 | DS ---
Physical Examination Vital Signs: Vital Signs Temperature 97.9 F 06/17/20 06:00 Pulse Rate 67 06/17/20 06:00 Respiratory Rate 18 06/17/20 06:00 Blood Pressure 103/64 06/17/20 06:00 O2 Sat by Pulse Oximetry (%) 100 06/17/20 06:00 Findings/Remarks: (1) Anemia Assessment/Plan: -2/2 to acute hemorrhoidal bleeding -H/H stable today -Seen by GI -Seen by Surgery -s/p hemorrhoidectomy -Colonoscopy-grade IV hemorrhoids -Transfuse if hg<7.0 -Monitor hg closely -GINA -Injectafer x 1 given during hospital stay -Started on Iron polysaccharide 150 mg po daily-continue Problems reviewed: Yes Code(s): D64.9 - ANEMIA, UNSPECIFIED Qualifiers: Anemia type: other cause Other causes of anemia: other cause, not classified Qualified Code(s): D64.89 - Other specified anemias (2) Rectal bleeding Assessment/Plan: as above -Avoid Nsaids -Seen by Surgery Problems reviewed: Yes Code(s): K62.5 - HEMORRHAGE OF ANUS AND RECTUM (3) Stage IV hemorrhoids Assessment/Plan: -Surgery on board -s/p hemorrhoidectomy -Sitz bath TID -Miralax daily -Colace 300 mg po hs -f/u with surgery in 1 week Problems reviewed: Yes Code(s): K64.3 - FOURTH DEGREE HEMORRHOIDS Assessment/Plan See problem list Constitutional: Yes: Well Nourished, No Distress, Calm Cardiovascular: Yes: Regular Rate and Rhythm Respiratory: Yes: Regular, CTA Bilaterally Gastrointestinal: Yes: Normal Bowel Sounds, Soft Renal/: Yes: WNL Musculoskeletal: Yes: WNL Extremities: Yes: WNL Edema: No Peripheral Pulses WNL: Yes Neurological: Yes: Alert, Oriented Psychiatric: Yes: Alert, Oriented Labs: CBC, BMP 06/17/20 06:40 06/17/20 06:40 Discharge Summary Problems reviewed: Yes Reason For Visit: ANEMIA LOWER GASTROINTESTINAL HEMORRHAGE Current Active Problems Anemia (Acute) LGI bleed (Acute) Lightheadedness (Acute) Rectal bleeding (Acute) Stage IV hemorrhoids (Acute) Condition: Stable - Instructions Referrals: Reji Finney MD [Primary Care Provider] - Brendan Santiago MD [Staff Physician] - Disposition: HOME - Home Medications Comprehensive Discharge Medication List: Ambulatory Orders Amlodipine/Atorvastatin [Amlodipine-Atorvast 10-20 mg] 1 each PO DAILY 06/12/20 Ferrous Sulfate [Iron] 325 mg PO DAILY 06/12/20 Linaclotide [Linzess] 145 mcg PO DAILY 06/12/20 Metoprolol Succinate 50 mg PO DAILY 06/12/20 Acetaminophen [Tylenol .Extra-Strength -] 1 - 2 mg PO Q6H PRN #240 tablet 06/17/20 Acetaminophen [Tylenol .Extra-Strength -] 1,000 mg PO Q6H PRN tablet 06/17/20 Acetaminophen [Tylenol .Extra-Strength -] 1,000 mg PO Q8H PRN tablet 06/17/20 Amlodipine Besylate [Norvasc -] 10 mg PO DAILY tablet 06/17/20 Amlodipine Besylate [Norvasc -] 10 mg PO DAILY tablet 06/17/20 Atorvastatin Ca [Lipitor] 20 mg PO DAILY tablet 06/17/20 Atorvastatin Ca [Lipitor] 20 mg PO DAILY tablet 06/17/20 Iron Polysaccharides [Niferex-150 -] 150 mg PO DAILY capsule 06/17/20 Iron Polysaccharides [Niferex-150 -] 150 mg PO DAILY #30 capsule 06/17/20 Lidocaine 5% Top. Ointment [Xylocaine 5% Top. Ointment -] 1 applic TP Q3H PRN tube 06/17/20 Lidocaine 5% Top. Ointment [Xylocaine 5% Top. Ointment -] 1 applic TP Q3H PRN #1 tube 06/17/20 Oxycodone HCl [Roxicodone] 1 - 2 mg PO Q4H PRN #60 tablet MDD 12 06/17/20 Prescription Drug Monitoring Program (I-STOP) results: I-STOP reviewed and no issues identified
[2020-06-17] MEDS ORDERED: PT OWN MED DRAWER 7, Y5N ONE (10:16)
[2020-06-17] MEDS: amLODIPine BESYLATE 10 MG TABLET (FP) PO SCH (10:19)
[2020-06-17] MEDS: ATORVASTATIN CA 20 MG TABLET (FP) PO SCH (10:19)
[2020-06-17] MEDS: IRON POLYSACCHARIDES 150 MG CAPSULE PO SCH ×2 (10:20→10:23)
[2020-06-17] MEDS: POLYETHYLENE GLYCOL 3350 119 GM BTL PO SCH (13:17)
[2020-06-17] MEDS: oxyCODONE HCL 5 MG TABLET PO PRN ×3 (15:24→23:13)
[2020-06-17] MEDS: traMADol HCL 50 MG TABLET PO PRN ×2 (15:25→23:13)
[2020-06-17] MEDS: LACTATED RINGERS SOLUTION 1,000 ML IV SCH (18:29)
--- NOTE | 2020-06-17 18:33 | PN ---
Progress Note, Physician History of Present Illness: s/p stapled hemorrhoidectomy and suture ligation of LL column prolapsed hemorrrhoid POD # 1 C/O pain and mild bleeding - Current Medication List Current Medications: Active Medications Acetaminophen (Tylenol -) 1,000 mg PO Q6H PRN PRN Reason: PAIN 1-3 Last Admin: 06/17/20 08:56 Dose: 1,000 mg Documented by: Amlodipine Besylate (Norvasc -) 10 mg PO DAILY [facility] Last Admin: 06/17/20 10:19 Dose: 10 mg Documented by: Atorvastatin Calcium (Lipitor -) 20 mg PO DAILY [facility] Last Admin: 06/17/20 10:19 Dose: 20 mg Documented by: Docusate Sodium (Colace -) 300 mg PO [facility] Fentanyl (Sublimaze Injection -) 50 mcg IVPUSH [id number] PRN PRN Reason: PAIN-PACU ORDER X 4 DOSES ONLY Last Admin: 06/16/20 17:15 Dose: 50 mcg Documented by: Hydromorphone HCl (Dilaudid Vial -) 2 mg IVPB Q6H PRN PRN Reason: PAIN LEVEL 6-10 Last Admin: 06/17/20 16:45 Dose: 2 mg Documented by: Potassium Chloride/Dextrose/Sod Cl (D5-1/2ns+20 Meq Kcl -) 20 meq in 1,000 mls @ 42 mls/hr IV ASDIR [facility] Last Admin: 06/17/20 02:31 Dose: 42 mls/hr Documented by: Lactated Ringer's (Lactated Ringers Solution) 1,000 mls @ 75 mls/hr IV ASDIR [facility] Last Admin: 06/16/20 22:58 Dose: Not Given Documented by: Lidocaine HCl (Xylocaine 5% Top. Ointment) 1 applic TP Q3H PRN PRN Reason: PAIN LEVEL 4 - 6 Metoprolol Succinate (Toprol Xl -) 50 mg PO DAILY [facility] Last Admin: 06/17/20 10:20 Dose: 50 mg Documented by: Oxycodone HCl (Roxicodone -) 5 mg PO Q4H PRN PRN Reason: PAIN LEVEL 7 - 10 Last Admin: 06/17/20 15:24 Dose: 5 mg Documented by: Polyethylene Glycol (Miralax (For Daily Use) -) 17 gm PO DAILY [facility] Last Admin: 06/17/20 13:17 Dose: 17 gm Documented by: Polysaccharide Iron Complex (Niferex-150 -) 150 mg PO DAILY [facility] Last Admin: 06/17/20 10:23 Dose: Not Given Documented by: Tramadol HCl (Ultram -) 50 mg PO Q6H PRN PRN Reason: PAIN LEVEL 4 - 6 Last Admin: 06/17/20 15:25 Dose: 50 mg Documented by: - Objective Vital Signs: Vital Signs Temperature 98.8 F 06/17/20 15:50 Pulse Rate 70 06/17/20 15:50 Respiratory Rate 06/17/20 15:50 Blood Pressure 120/74 06/17/20 15:50 O2 Sat by Pulse Oximetry (%) 100 06/17/20 10:00 Constitutional: Yes: Anxious Cardiovascular: Yes: Regular Rate and Rhythm Respiratory: Yes: CTA Bilaterally ...Rectal Exam: Yes: Other (prolapsed hemorrhodi edematous with minimal bleeding) Labs: CBC, BMP 06/17/20 06:40 06/17/20 06:40 INR, PTT INR 0.96 (0.83-1.09) 06/13/20 06:20 Problem List - Problems (1) Stage IV hemorrhoids Assessment/Plan: s/p stapled hemorrhoidectomy with expected post-op pain and edema, no evidence of active bleeding sitz baths x 15 minutes TID and after BM'S Lidocaine 5% ointment every 3 - 4 hours prn for pain high fiber diet po analgesics oral laxatives F/U at office in one week Code(s): K64.3 - FOURTH DEGREE HEMORRHOIDS
--- NOTE | 2020-06-17 20:52 | OP ---
DATE OF OPERATION: 06/16/2020 PROCEDURE: Examination under anesthesia, stapled hemorrhoidectomy using the PPH device stapler. PREOPERATIVE DIAGNOSIS: Stage 4 hemorrhoids with bleeding. POSTOPERATIVE DIAGNOSIS: Stage 4 hemorrhoids with bleeding. SURGEON: Brendan Santiago MD. ANESTHESIA: General by laryngeal mask airway. FINDINGS ON PROCEDURE: This is a 54-year-old female admitted for severe anemia from bleeding from stage 4 hemorrhoids. Initial attempt at colonoscopic rubber band ligation proved to be unsuccessful. On physical examination, patient has a large prolapsing hemorrhoids of the right anterior, right posterior, and left lateral columns ranging from 3 to 4 cm in size. At the time of exam, no active bleeding was noted. So patient was advised exam under anesthesia T and possible hemorrhoidectomy to control the bleeding and possibly remove hemorrhoids. Consent was obtained after discussing the risks, benefits, and alternatives to the procedure. DESCRIPTION OF PROCEDURE: The patient was brought to the operating room and placed in supine position. General anesthesia via laryngeal mask airway was administered. Patient was then placed in extended lithotomy position. Using the lighted Warren-Felipe anal retractor, the anal canal was carefully inspected and large prolapsing hemorrhoids were encountered. An active bleeder at the left lateral column hemorrhoid was suture ligated with Vicryl 3-0 to control the hemorrhage. It was decided upon to perform the procedure for prolapsed hemorrhoids stapling by initially applying the anal dilator; the circular anoscope was then applied and anchored to the skin with silk 2-0 suture. After identifying the dentate line, the circulating anoscope was inserted and pursestring suture was applied about 1.5 cm above the dentate line using Prolene 2-0. After the suture application, the anvil of the PPH stapler was inserted beyond the pursestring, and the pursestring was tightened. The stapler was then closed and the posterior vaginal wall was carefully inspected to insure the posterior vaginal wall was free from being caught in between the jaws of the stapler. After this was determined that the posterior vaginal wall was uninvolved, the stapler was fired, and about 1.5 cm rim of rectal mucosa was resected. Further hemostasis was achieved by inserting 3 pieces of Surgicel. The hemorrhoids were pushed back into the anal canal and about 20 mL of lidocaine 1% with epinephrine was injected perianally for postoperative anesthesia and hemostasis. The perineum was then covered with ABD pad. The patient was placed back in supine position and successfully extubated. The patient was transferred to the post anesthesia care unit in satisfactory condition. Estimated blood loss was about 25 mL, wound class contaminated. Patient received a gram of Ancef prior to the start of the procedure. Hemant [id number] MTDD
[2020-06-17] MEDS ORDERED: DOCUSATE SODIUM 100 MG CAPSULE (FP) PO SCH (22:00)
[2020-06-18] MEDS: oxyCODONE HCL 5 MG TABLET PO PRN ×2 (02:51→09:00)
[2020-06-18] MEDS: ACETAMINOPHEN 500 MG TABLET (FP) PO PRN (02:51)
[2020-06-18] MEDS: HYDROmorphone HCl 2 MG/ML VIAL IVPB PRN (04:32)
[2020-06-18 07:33] LABS: BASO % 0.3 % (0-2.0); EOS % 1.4 % (0-4.5); HEMATOCRIT 29.9 % (32.4-45.2); HEMOGLOBIN 9.6 GM/dL (10.7-15.3); LYMPH % 9.6 % (8-40); MCH 27.7 pg (25.7-33.7); MCHC 32.1 g/dl (32.0-36.0); MEAN CELL VOLUME 86.3 fl (80-96); MEAN PLT VOLUME 8.2 fl (7.5-11.1); MONO % 8.4 % (3.8-10.2); NEUT % 80.3 % (42.8-82.8); PLATELET COUNT 296 K/MM3 (134-434); RBC 3.46 M/mm3 (3.60-5.2); RDW 16.8 % (11.6-15.6); WHITE BLOOD COUNT 9.3 K/mm3 (4.0-10.0)
[2020-06-18 07:59] LABS: ALBUMIN 3.3 g/dl (3.4-5.0); BILIRUBIN,TOTAL 0.5 mg/dL (0.2-1); BLOOD UREA NITROGEN 6.2 mg/dL (7-18); CALCIUM 8.7 mg/dL (8.5-10.1); CREATININE 0.8 mg/dL (0.55-1.3); POTASSIUM 4.6 mmol/L (3.5-5.1); TOT PROT 6.4 g/dl (6.4-8.2)
[2020-06-18 08:00] VITALS: BP 120/83; PULSE 87; TEMP 98.5
[2020-06-18] MEDS: amLODIPine BESYLATE 10 MG TABLET (FP) PO SCH (09:01)
[2020-06-18] MEDS: ATORVASTATIN CA 20 MG TABLET (FP) PO SCH (09:01)
[2020-06-18] MEDS: IRON POLYSACCHARIDES 150 MG CAPSULE PO SCH ×2 (09:01→09:07)
[2020-06-18] MEDS: POLYETHYLENE GLYCOL 3350 119 GM BTL PO SCH (09:05)
--- NOTE | 2020-06-18 10:25 | PN ---
Progress Note, Physician Chief Complaint: Anemia Bleeding hemorrhoids History of Present Illness: NAD alert and awake S/P colonoscopy S/P hemorrhoidectomy Pt was discharged yesterday, refused to leave due to pain, was kept overnight by surgery to monitor and for IV dilaudid. Pt is in moderate pain but is agreeable to be discharged - Current Medication List Current Medications: Active Medications Acetaminophen (Tylenol -) 1,000 mg PO Q6H PRN PRN Reason: PAIN 1-3 Last Admin: 06/18/20 02:51 Dose: 1,000 mg Documented by: Amlodipine Besylate (Norvasc -) 10 mg PO DAILY [facility] Last Admin: 06/18/20 09:01 Dose: 10 mg Documented by: Atorvastatin Calcium (Lipitor -) 20 mg PO DAILY [facility] Last Admin: 06/18/20 09:01 Dose: 20 mg Documented by: Docusate Sodium (Colace -) 300 mg PO HS [facility] Last Admin: 06/17/20 22:22 Dose: 300 mg Documented by: Fentanyl (Sublimaze Injection -) 50 mcg IVPUSH [id number] PRN PRN Reason: PAIN-PACU ORDER X 4 DOSES ONLY Last Admin: 06/16/20 17:15 Dose: 50 mcg Documented by: Hydromorphone HCl (Dilaudid Vial -) 2 mg IVPB Q6H PRN PRN Reason: PAIN LEVEL 6-10 Last Admin: 06/18/20 04:32 Dose: 2 mg Documented by: Potassium Chloride/Dextrose/Sod Cl (D5-1/2ns+20 Meq Kcl -) 20 meq in 1,000 mls @ 42 mls/hr IV ASDIR [facility] Last Admin: 06/17/20 14:00 Dose: Not Given Documented by: Lidocaine HCl (Xylocaine 5% Top. Ointment) 1 applic TP Q3H PRN PRN Reason: PAIN LEVEL 4 - 6 Last Admin: 06/17/20 20:00 Dose: 1 applic Documented by: Metoprolol Succinate (Toprol Xl -) 50 mg PO DAILY [facility] Last Admin: 06/18/20 09:01 Dose: 50 mg Documented by: Oxycodone HCl (Roxicodone -) 5 mg PO Q4H PRN PRN Reason: PAIN LEVEL 7 - 10 Last Admin: 06/18/20 09:00 Dose: 5 mg Documented by: Polyethylene Glycol (Miralax (For Daily Use) -) 17 gm PO DAILY [facility] Last Admin: 06/18/20 09:05 Dose: Not Given Documented by: Polysaccharide Iron Complex (Niferex-150 -) 150 mg PO DAILY [facility] Last Admin: 06/18/20 09:07 Dose: Not Given Documented by: Tramadol HCl (Ultram -) 50 mg PO Q6H PRN PRN Reason: PAIN LEVEL 4 - 6 Last Admin: 06/17/20 23:13 Dose: 50 mg Documented by: - Objective Vital Signs: Vital Signs Temperature 98.5 F 06/18/20 07:59 Pulse Rate 87 06/18/20 07:59 Respiratory Rate 18 06/18/20 09:00 Blood Pressure 120/83 06/18/20 07:59 O2 Sat by Pulse Oximetry (%) 95 06/18/20 09:00 Constitutional: Yes: Well Nourished, No Distress, Calm Cardiovascular: Yes: Regular Rate and Rhythm Respiratory: Yes: Regular, CTA Bilaterally Gastrointestinal: Yes: Normal Bowel Sounds, Soft Genitourinary: Yes: WNL Musculoskeletal: Yes: WNL Extremities: Yes: WNL Edema: No Peripheral Pulses WNL: Yes Neurological: Yes: Alert, Oriented Psychiatric: Yes: Alert, Oriented Labs: CBC, BMP 06/18/20 06:30 06/18/20 06:30 INR, PTT INR 0.96 (0.83-1.09) 06/13/20 06:20 Problem List - Problems (1) Anemia Assessment/Plan: -2/2 to acute hemorrhoidal bleeding -Seen by GI -Seen by Surgery -Possible to OR today for hemorrhoidectomy -Colonoscopy done this AM -Transfuse if hg<7.0 -Monitor hg closely -GINA -Injectafer x 1 given this admission -Started on Iron polysaccharide 150 mg po daily Problems reviewed: Yes Code(s): D64.9 - ANEMIA, UNSPECIFIED Qualifiers: Anemia type: other cause Other causes of anemia: other cause, not classified Qualified Code(s): D64.89 - Other specified anemias (2) Rectal bleeding Assessment/Plan: as above -Avoid Nsaids -Seen by Surgery Problems reviewed: Yes Code(s): K62.5 - HEMORRHAGE OF ANUS AND RECTUM (3) Stage IV hemorrhoids Assessment/Plan: -Surgery on board -s/p hemorrhoidectomy -May use a little lidocaine 5% on the inner rim of the rectum Problems reviewed: Yes Code(s): K64.3 - FOURTH DEGREE HEMORRHOIDS Assessment/Plan See problem list
--- NOTE | 2020-06-18 18:48 | PATH ---
Surgical Pathology Report Patient Name: NATHEN VENTURA Med. Rec. #: [id number] /Age/Gender: 1965 (Age: 54) / F Account: [id number] Location: [facility] MED/SURG Taken: 06/16/2020 Received: 06/17/2020 Reported: 06/18/2020 Physicians: PHYSICIAN EMERGENCY DEPT Specimen(s) Received HEMORRHOIDS Clinical History Hemorrhoids Final Diagnosis HEMORRHOIDS, HEMORRHOIDECTOMY: POLYPOID SQUAMOUS MUCOSA WITH DILATED THICK WALLED CONGESTED SUBMUCOSAL VESSELS CONSISTENT WITH HEMORRHOIDS. Electronically Signed Lara Baires M.D. Gross Description Received in formalin labeled "hemorrhoids," is a 9.0 x 2.4 x 0.8 cm stroud-brown portion of soft tissue, consistent with hemorrhoids. Government Clerk sections are submitted in one cassette. /06/17/2020 saudi/06/17/2020
== END 2020-06-18 11:10 | disposition home or self-care (01) | DRG 226 ==
LOC: JER 11:09 → JERBED 13:15 → J7W 16:23
PROVIDERS: ADMIT Family Medicine; ATTEND Family Medicine
PROC: 30233N1 Transfusion of Nonautologous Red Blood Cells into Peripheral Vein, Percutaneous Approach (ICD-10-PCS; 2020-06-12)
PROC: 0DJD8ZZ Inspection of Lower Intestinal Tract, Via Natural or Artificial Opening Endoscopic (ICD-10-PCS; 2020-06-15)
PROC: 06BY3ZC Excision of Hemorrhoidal Plexus, Percutaneous Approach (ICD-10-PCS; 2020-06-16)
PROC: 06LY3CC Occlusion of Hemorrhoidal Plexus with Extraluminal Device, Percutaneous Approach (ICD-10-PCS; principal; 2020-06-16 15:00)
DX: K64.3 Fourth degree hemorrhoids (principal); E78.5 Hyperlipidemia, unspecified; K59.00 Constipation, unspecified; D62 Acute posthemorrhagic anemia; I10 Essential (primary) hypertension
CPT/HCPCS: 36415; 36430; 71045-TC-FY; 80053; 81003; 82272; 82728; 83540; 83550; 84443; 85025; 85610; 85730; 86850; 86870; 86900; 86901; 86902; 86922; 87086; 88304-TC; 93005; 93010; 94760; 99285-25; J1439; P9058; U0003